=== PATIENT | female | born 1950 | race Caucasian/White ===

== ENCOUNTER → 2017-03-01 | Outpatient (CLI) | payer MEDICARE, BC ==
[~2017-03-01] MED LIST: ACID1TAB3 PO; ASP81CT PO; BIOT25006 PO; BIOT5TAB PO; CAL1TABL3 PO; DHA; FLC1T PO; GLUC-113 PO; LEVO75TA4 PO; MELO-249 PO; METH2.5T PO; OMEP40CA36 PO; PRED20TA PO; SCR1T1 PO; SMV10T PO; [UNRECOGNIZED DRUG - CODE] PO; [UNRECOGNIZED DRUG - OTHER] PO
[2017-03-01 11:06] LABS: BASOPHILS % (AUTO) 1 % (0-2); EOSINOPHILS # (AUTO) 0.1 10^3uL; EOSINOPHILS % (AUTO) 2 % (0-4); LYMPHOCYTES # (AUTO) 1.3 X10^3; MEAN CORPUSCULAR HEMOGLOBIN 28.9 PG (26.0-34.0); MEAN CORPUSCULAR HGB CONC 33.2 g/dL (31.0-37.0); MEAN CORPUSCULAR VOLUME 87 FL (80-100); MEAN PLATELET VOLUME 11.2 FL (6.0-9.5); MONOCYTES # (AUTO) 0.5 X10^3; MONOCYTES % (AUTO) 9 % (3-11); NEUTROPHILS # (AUTO) 4.2 X10^3; NEUTROPHILS % (AUTO) 68 % (51-67); PLATELET COUNT 194 10^3uL (150-450); WHITE BLOOD COUNT 6.22 10^3uL (4.0-11.0)
[2017-03-01 11:23] LABS: ALKALINE PHOSPHATASE 51 U/L (38-126); ANION GAP 15.5 MEQ/L (3-15); BUN/CREATININE RATIO 23 (10-20)
[2017-03-01 11:41] LABS: ERYTHROCYTE SEDIMENTATION RT* 4 mm/hr (0-23)
== END ==
LOC: LAB 10:44
PROVIDERS: ATTEND Internal Medicine Rheumatology
DX: E03.8 Other specified hypothyroidism (principal); Z13.818 Encounter for screening for other digestive system disorders; M06.4 Inflammatory polyarthropathy
CPT/HCPCS: 36415; 80053; 84443; 85025; 85652; 86140; 86803